=== PATIENT | male | born 1975 | race Two or more races ===

== ENCOUNTER 2024-11-21 12:25 | Emergency (ER) | payer OTHER ==
[~2024-11-21] VITALS: Ht 175.3 cm; Wt 93.0 kg
[2024-11-21] MEDS ORDERED: 0.9 % SODIUM CHLORIDE 1,000 ML IV ONE (13:15)
[2024-11-21 13:42] LABS: BASO % 0.5 % (0.1-1.2); EOS # 0.06 (0.04-0.54); EOS % 0.7 % (0.7-7.0); LYMPH # 2.03 (1.18-3.74); LYMPH % 25.1 % (19.3-53.1); MEAN PLATELET VOLUME 10.60 fl (9.4-12.4); MONO # 0.67 (0.24-0.82); MONO % 8.3 % (4.7-12.5); NEUT # 5.27 (1.56-6.13); NEUT % 65.0 % (34.0-71.1); RED CELL DISTRIBUTION WIDTH 12.2 % (11.6-14.4)
[2024-11-21 14:04] LABS: ALT/SGPT 36.0 U/L (12-78); AST/SGOT 28.0 U/L (15-37); BILIRUBIN TOTAL 0.99 mg/dL (0.3-1.2); BUN CREA RATIO 15.0 (7.0-25.0); CREATININE SERUM 1.69 mg/dL (0.70-1.30); GFR 43.71; GLOBULINA 3.9 G/DL (2.4-3.5); GLUCOSE FASTING 81.0 mg/dL (65-100); OSMOLALITY SERUM 279.0 MOSM/KG (275-295)
[2024-11-21 14:09] LABS: INR 1.03
[2024-11-21 14:21] LABS: D DIMER 0.31 MG/L
[2024-11-21 14:36] LABS: COVID-19 AG NEGATIVE (NEGATIVE)
[2024-11-21 15:39] LABS: URINE APPEARANCE Clear; URINE BILIRRUBIN Negative (NEGATIVE); URINE BLOOD Negative; URINE COLOR Yellow; URINE GLUCOSE Negative (NEGATIVE); URINE KETONE Trace (NEGATIVE); URINE LEUKOCYTE Negative; URINE NITRATE Negative; URINE PROTEIN Negative (NEGATIVE); URINE UROBILINOGEN 1.0 E.U./dl
[2024-11-21 15:42] LABS: URINE BACTERIA 5.9 uL (0.0-1933); URINE CAST 2.05 uL (0.0-1.40); URINE EPITHELIAL CELLS 6.4 uL (0.0-38.8); URINE WBC 2.3 uL (0.0-23.2)
[2024-11-21 16:02] LABS: URINE RBC 0.8 uL (0.0-20.8)
== END 2024-11-21 15:43 | disposition home or self-care (01) ==
LOC: ER 12:25 → EDBD 12:46 → ER 12:46 → EMR PED 12:46 → ER 15:43
PROVIDERS: General Practice
DX: R42 Dizziness and giddiness (principal); M79.669 Pain in unspecified lower leg; I10 Essential (primary) hypertension; Z20.822 Contact with and (suspected) exposure to COVID-19; I87.2 Venous insufficiency (chronic) (peripheral)

== ENCOUNTER 2024-12-06 10:29 | Outpatient (CLI) | payer OTHER | END 2024-12-06 10:33 | disposition home or self-care (01) | LOC: NUCLEAR 10:29 | DX: I20.89 Other forms of angina pectoris (principal) ==